=== PATIENT | female | born 1995 | race Caucasian/White ===

== ENCOUNTER 2018-01-29 13:13 | Emergency (ER) | payer SELFPAY ==
[~2018-01-29 13:13] MED LIST: Sodium Chloride 0.9% 1,000 ML BAG ONE
[2018-01-29] MEDS ORDERED: Ondansetron ODT 4 MG TAB ONE (14:11)
[2018-01-29 14:17] LABS: Bilirubin Small (Negative); Blood, Urine Trace (Negative); Glucose, Urine (Dipstick) Negative (Negative); Leukocyte Trace (Negative); Nitrite Negative (Negative); Protein, Urine (Dipstick) 30 mg/dL (Neg-Trace); Urobilinogen 0.2 mg/dL (0.2-1.0); pH, Urine 5.5 (5.0-9.0)
[2018-01-29 14:22] LABS: Pregnancy Test - Urine (BHCG) Negative (Negative)
[2018-01-29 14:23] LABS: #Basophils 0.1 thou/uL (0.0-0.2); #Eosinphils 0.3 thou/uL (0.0-0.7); #Lymphocytes 2.4 thou/uL (1.20-3.40); #Neutrophils 11.7 thou/uL (1.40-6.50); %Basophils 0.5 % (0.0-1.0); %Eosinophils 1.8 % (0.0-10.0); %Lymphocytes 15.4 % (28.0-48.0); %Monocytes 6.4 % (0.0-4.0); Mean Corpuscular HGB CONC 32.7 g/dL (32.0-36.0); Mean Corpuscular Hemoglobin 26.1 pg (25.0-35.0); Mean Corpuscular Volume 79.8 fl (77.0-87.0); Mean Platelet Volume 5.2 fL (7.4-10.4); Platelet Count 375 thou/uL (130-400); Pregu Control Background? CLEAR/WHITE (CLR/WHITE); Pregu Control Bar Appear? YES (CONTROL BAR); RBC Distribution Width 12.1 % (11.5-14.5); Specific Gravity 1.032 (1.002-1.036); White Blood Cell (WBC) Count 15.3 thou/uL (4.8-10.8)
[2018-01-29 14:29] LABS: Clarity Slightly Cloudy (Clear); Specific Gravity, Urine 1.032 (1.002-1.036)
[2018-01-29 14:30] LABS: Bacteria/HPF 3+ HPF (None Seen); RBC/HPF 0-3 HPF (0-3)
[2018-01-29 14:32] LABS: ALT (SGPT) 47 U/L (8-55); AST (SGOT) 22 U/L (5-34); Albumin 3.8 g/dL (3.5-5.0); Alkaline Phosphatase 54 U/L (40-150); Anion Gap 14 mmol/L (10-20); BUN (Urea Nitrogen) 6 mg/dL (7.0-18.7); Bilirubin, Total 0.4 mg/dL (0.2-1.2); Calc. Creatinine Clearance 0 mL/min (70-130); Calcium 9.3 mg/dL (7.8-10.44); Carbon Dioxide 22 mmol/L (22-29); Chloride 108 mmol/L (98-107); Estimated GFR-MDRD Greater than 90; Globulin 2.9 g/dL (2.4-3.5); Glucose 108 mg/dL (70-105); Lipase 7 U/L (8-78); Potassium 3.7 mmol/L (3.5-5.1); Protein, Total 6.7 g/dL (6.0-8.3); Sodium 140 mmol/L (136-145)
== END 2018-01-29 15:59 | disposition home or self-care (01) ==
LOC: MADERS 13:13
DX: K52.9 Noninfective gastroenteritis and colitis, unspecified (principal); F31.9 Bipolar disorder, unspecified; F41.9 Anxiety disorder, unspecified; F17.210 Nicotine dependence, cigarettes, uncomplicated; F44.81 Dissociative identity disorder; F43.10 Post-traumatic stress disorder, unspecified; G47.00 Insomnia, unspecified
CPT/HCPCS: 80053; 81003; 81015; 81025; 83605; 83690; 85025; 87086; 96360; 96361; J7050; Q0162

== ENCOUNTER 2018-03-17 13:12 | Emergency (ER) | payer SELFPAY | END 2018-03-17 14:15 | disposition left against medical advice (07) | LOC: MADERS 13:12 | DX: Z53.21 Procedure and treatment not carried out due to patient leaving prior to being seen by health care provider (principal) ==

== ENCOUNTER 2018-05-24 18:11 | Emergency (ER) | payer SELFPAY ==
[2018-05-24 19:00] LABS: Pregnancy Test - Urine (BHCG) Negative (Negative); Pregu Control Background? CLEAR/WHITE (CLR/WHITE); Pregu Control Bar Appear? YES (CONTROL BAR); Specific Gravity 1.023 (1.002-1.036)
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
== END 2018-05-24 19:13 | disposition home or self-care (01) ==
LOC: MADERS 18:11
DX: S06.9X1A Unspecified intracranial injury with loss of consciousness of 30 minutes or less, initial encounter (principal); F31.9 Bipolar disorder, unspecified; F60.9 Personality disorder, unspecified; F41.9 Anxiety disorder, unspecified; F17.210 Nicotine dependence, cigarettes, uncomplicated; W10.9XXA Fall (on) (from) unspecified stairs and steps, initial encounter
CPT/HCPCS: 70450; 72125; 81025

== ENCOUNTER 2018-12-17 21:36 | Emergency (ER) | payer SELFPAY ==
[2018-12-17 22:05] LABS: Bilirubin Negative (Negative); Blood, Urine Moderate (Negative); Glucose, Urine (Dipstick) Negative (Negative); Leukocyte Moderate (Negative); Nitrite Negative (Negative); Pregnancy Test - Urine (BHCG) Negative (Negative); Pregu Control Background? CLEAR/WHITE (CLR/WHITE); Pregu Control Bar Appear? YES (CONTROL BAR); Protein, Urine (Dipstick) 30 mg/dL (Neg-Trace); Urobilinogen 0.2 mg/dL (0.2-1.0); pH, Urine 5.5 (5.0-9.0)
[2018-12-17] MEDS ORDERED: Ketorolac Tromethamine 30 MG/ML VIAL ONE (22:05)
[2018-12-17] MEDS ORDERED: Sodium Chloride 0.9% 1,000 ML ONE (22:05)
[2018-12-17 22:08] LABS: Clarity Cloudy (Clear); RBC/HPF 0-3 HPF (0-3)
[2018-12-17 22:09] LABS: Bacteria/HPF 2+ HPF (None Seen)
[2018-12-17 22:25] LABS: Amphetamine Detected (NotDetected); Barbiturates Screen Not Detected (NotDetected); Benzodiazepine Screen Not Detected (NotDetected); Cocaine Metabolite Screen Not Detected (NotDetected); Medtox Control Line Valid? VALID (VALID); Methadone Not Detected (NotDetected); Methamphetamine Detected (NotDetected); Opiate Screen Not Detected (NotDetected); Oxycodone Screen Not Detected (NotDetected); Phencyclidine (PCP) Not Detected (NotDetected); THC/Cannabinoid Screen Detected (NotDetected); Tricyclic Screen Not Detected (NotDetected)
[2018-12-17] MEDS ORDERED: Sulfameth/Trimethoprim DS 800-160mg TAB ONE (22:27)
[2018-12-17 22:38] LABS: Hypochromia MODERATE=16-30 cells (100X) (0-5/hpf); Lymphocytes 21 % (21-51); MDiff Complete? YES; Mean Corpuscular HGB CONC 31.9 g/dL (32.0-36.0); Mean Corpuscular Hemoglobin 23.9 pg (27.0-31.0); Mean Corpuscular Volume 74.9 fL (78.0-98.0); Mean Platelet Volume 5.8 fL (7.4-10.4); Microcytosis MODERATE=15-30 cells (100X) (0-5/hpf); Monocytes 12 % (0-10); Neutrophil 66 % (42-75); Platelet Count 298 thou/uL (130-400); Platelet Morphology Comment Appears Adequate; RBC Distribution Width 14.8 % (11.5-14.5); RBC Morphology Abnormal; Reactive Lymphocytes 1 % (0-10); White Blood Cell (WBC) Count 9.3 thou/uL (4.8-10.8)
[2018-12-17 22:41] LABS: ALT (SGPT) 42 U/L (8-55); AST (SGOT) 19 U/L (5-34); Albumin 4.2 g/dL (3.5-5.0); Alkaline Phosphatase 71 U/L (40-150); Anion Gap 16 mmol/L (10-20); BUN (Urea Nitrogen) 10 mg/dL (7.0-18.7); Bilirubin, Total 0.6 mg/dL (0.2-1.2); Calc. Creatinine Clearance 0 mL/min (70-130); Calcium 9.4 mg/dL (7.8-10.44); Carbon Dioxide 21 mmol/L (22-29); Chloride 102 mmol/L (98-107); Estimated GFR-MDRD Greater than 90; Globulin 3.2 g/dL (2.4-3.5); Glucose 92 mg/dL (70-105); Potassium 3.2 mmol/L (3.5-5.1); Protein, Total 7.4 g/dL (6.0-8.3); Sodium 136 mmol/L (136-145)
[2018-12-17] MEDS ORDERED: Potassium Chloride 20 MEQ TAB ONE (22:52)
== END 2018-12-17 23:02 | disposition home or self-care (01) ==
LOC: MADERS 21:36
DX: N10 Acute pyelonephritis (principal); E11.649 Type 2 diabetes mellitus with hypoglycemia without coma; F43.10 Post-traumatic stress disorder, unspecified; F60.3 Borderline personality disorder; F90.9 Attention-deficit hyperactivity disorder, unspecified type; E03.9 Hypothyroidism, unspecified; F41.9 Anxiety disorder, unspecified; F17.210 Nicotine dependence, cigarettes, uncomplicated; Z71.6 Tobacco abuse counseling
CPT/HCPCS: 80053; 80306; 81003; 81015; 81025; 85025; 87077; 87086; 87186; 96361; 96374; 99406; J1885; J7050

== ENCOUNTER 2019-03-11 13:12 | Emergency (ER) | payer BC ==
[~2019-03-11 13:12] MED LIST changes: -Sodium Chloride 0.9% 1,000 ML BAG ONE; +Sodium Chloride Irrig Solution 250 ML BOT ONE
[2019-03-11] MEDS ORDERED: Lidocaine-Prilocaine 2.5% Cream 5 GM TUBE ONE (14:13)
[2019-03-11] MEDS ORDERED: Lidocaine 1% 20 ML MDV ONE (14:35)
== END 2019-03-11 15:22 | disposition home or self-care (01) ==
LOC: MADERS 13:12
DX: S51.812A Laceration without foreign body of left forearm, initial encounter (principal); I10 Essential (primary) hypertension; E03.9 Hypothyroidism, unspecified; F41.9 Anxiety disorder, unspecified; F31.9 Bipolar disorder, unspecified; F43.10 Post-traumatic stress disorder, unspecified; F90.9 Attention-deficit hyperactivity disorder, unspecified type; G47.00 Insomnia, unspecified; F17.210 Nicotine dependence, cigarettes, uncomplicated; Z79.899 Other long term (current) drug therapy; W26.8XXA Contact with other sharp object(s), not elsewhere classified, initial encounter
CPT/HCPCS: 12002; J2001

== ENCOUNTER 2019-03-16 22:25 | Emergency (ER) | payer BC ==
--- NOTE | 2019-03-16 23:04 | RAD ---
EXAM: XR Hand Rt 3 View STANDARD PROVIDED CLINICAL HISTORY: Pain FINDINGS: There is no evidence for fracture or other acute osseous abnormality. Alignment appears anatomic. Ashly nt spaces appear preserved. IMPRESSION: No evidence for an acute osseous abnormality. If there is persistent clinical concern, conservative m anagement and follow-up imaging advised.
--- NOTE | 2019-03-16 23:06 | RAD ---
EXAM: XR Wrist 3 Rt View STANDARD PROVIDED CLINICAL HISTORY: Pain FINDINGS: There is no evidence for fracture or other acute osseous abnormality. Alignment appears anatomic. Ashly nt spaces appear preserved. IMPRESSION: No evidence for an acute osseous abnormality. If there is persistent clinical concern, conservative m anagement and follow-up imaging advised.
== END 2019-03-16 23:40 | disposition left against medical advice (07) ==
LOC: MADERS 22:25
DX: S60.211A Contusion of right wrist, initial encounter (principal); I10 Essential (primary) hypertension; E11.649 Type 2 diabetes mellitus with hypoglycemia without coma; E03.9 Hypothyroidism, unspecified; F41.9 Anxiety disorder, unspecified; F31.9 Bipolar disorder, unspecified; F43.10 Post-traumatic stress disorder, unspecified; F17.210 Nicotine dependence, cigarettes, uncomplicated; F90.9 Attention-deficit hyperactivity disorder, unspecified type; G47.00 Insomnia, unspecified; X58.XXXA Exposure to other specified factors, initial encounter

== ENCOUNTER 2019-04-07 08:35 | Emergency (ER) | payer BC ==
[2019-04-07 09:09] LABS: #Basophils 0.1 thou/uL (0.0-0.2); #Eosinphils 0.1 thou/uL (0.0-0.7); #Lymphocytes 1.4 thou/uL (1.20-3.40); #Monocytes 0.6 thou/uL (0.11-0.59); #Neutrophils 6.8 thou/uL (1.40-6.50); %Basophils 0.6 % (0.0-1.0); %Eosinophils 0.9 % (0.0-10.0); %Lymphocytes 16.1 % (21.0-51.0); %Monocytes 6.2 % (0.0-10.0); %Neutrophils 76.3 % (42.0-75.0); Hemoglobin 11.3 g/dL (12.0-16.0); Mean Corpuscular HGB CONC 32.8 g/dL (32.0-36.0); Mean Corpuscular Hemoglobin 26.8 pg (27.0-31.0); Mean Corpuscular Volume 81.5 fL (78.0-98.0); Mean Platelet Volume 5.9 fL (7.4-10.4); Platelet Count 259 thou/uL (130-400); RBC Distribution Width 14.2 % (11.5-14.5); Red Blood Cell (RBC) Count 4.22 mill/uL (4.20-5.40); White Blood Cell (WBC) Count 8.9 thou/uL (4.8-10.8)
[2019-04-07 09:17] LABS: BHCG - Serum Negative (NEGATIVE); Pregs Control Background? CLEAR/WHITE (CLR/WHITE); Pregs Control Bar Appear? YES (CONTROL BAR)
[2019-04-07] MEDS ORDERED: Triple Antibiotic Oint 1 GM Packet ONE (09:19)
[2019-04-07 09:24] LABS: ALT (SGPT) 54 U/L (8-55); AST (SGOT) 21 U/L (5-34); Albumin 3.9 g/dL (3.5-5.0); Alkaline Phosphatase 66 U/L (40-150); Anion Gap 11 mmol/L (10-20); BUN (Urea Nitrogen) 7 mg/dL (7.0-18.7); Bilirubin, Total 0.3 mg/dL (0.2-1.2); Calc. Creatinine Clearance 0 mL/min (70-130); Calcium 8.9 mg/dL (7.8-10.44); Carbon Dioxide 24 mmol/L (22-29); Chloride 110 mmol/L (98-107); Estimated GFR-MDRD Greater than 90; Globulin 2.5 g/dL (2.4-3.5); Glucose 97 mg/dL (70-105); Lipase 12 U/L (8-78); Protein, Total 6.4 g/dL (6.0-8.3); Sodium 141 mmol/L (136-145)
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
[2019-04-07 09:50] LABS: Amphetamine Not Detected (NotDetected); Barbiturates Screen Not Detected (NotDetected); Benzodiazepine Screen Not Detected (NotDetected); Cocaine Metabolite Screen Not Detected (NotDetected); Medtox Control Line Valid? VALID (VALID); Methadone Not Detected (NotDetected); Methamphetamine Not Detected (NotDetected); Opiate Screen Not Detected (NotDetected); Oxycodone Screen Not Detected (NotDetected); Phencyclidine (PCP) Not Detected (NotDetected); THC/Cannabinoid Screen Detected (NotDetected); Tricyclic Screen Not Detected (NotDetected)
[2019-04-07 09:51] LABS: Bilirubin Negative (Negative); Blood, Urine Negative (Negative); Clarity Clear (Clear); Glucose, Urine (Dipstick) Negative (Negative); Leukocyte Trace (Negative); Nitrite Negative (Negative); Protein, Urine (Dipstick) 100 mg/dL (Neg-Trace); RBC/HPF 0-3 HPF (0-3); Squamous Epithelial 0-3 HPF (0-3); Urobilinogen 0.2 mg/dL (Less than 2)
[2019-04-07 09:52] LABS: Bacteria/HPF Rare-Few HPF (None Seen)
--- NOTE | 2019-04-07 10:01 | RAD ---
CHEST 2 VIEWS: Date: 04/07/19 HISTORY: Upper abdominal pain. FINDINGS: Heart size is within normal limits. The lungs are clear. No pneumothorax or pleural effusion. IMPRESSION: No acute intrathoracic disease. No free intraperitoneal air. POS: [facility]
[2019-04-07] MEDS ORDERED: Iopamidol 370 76% 100 ML VIAL ONE (10:04)
== END 2019-04-07 12:00 | disposition home or self-care (01) ==
LOC: MADERS 08:35
DX: S80.812A Abrasion, left lower leg, initial encounter (principal); S80.811A Abrasion, right lower leg, initial encounter; R10.11 Right upper quadrant pain; N39.0 Urinary tract infection, site not specified; I10 Essential (primary) hypertension; E11.649 Type 2 diabetes mellitus with hypoglycemia without coma; E03.9 Hypothyroidism, unspecified; F41.9 Anxiety disorder, unspecified; F31.9 Bipolar disorder, unspecified; F43.10 Post-traumatic stress disorder, unspecified; F90.9 Attention-deficit hyperactivity disorder, unspecified type; G47.00 Insomnia, unspecified; F17.210 Nicotine dependence, cigarettes, uncomplicated; Y04.0XXA Assault by unarmed brawl or fight, initial encounter
CPT/HCPCS: 71046; 74177; 80053; 80306; 81003; 81015; 83690; 84703; 85025; 87086; 93005; 94760; Q9967

== ENCOUNTER 2019-04-30 02:46 | Emergency (ER) | payer BC ==
[2019-04-30] MEDS ORDERED: Ibuprofen 800 MG TAB ONE (03:27)
[2019-04-30 03:28] LABS: Bilirubin Negative (Negative); Blood, Urine Negative (Negative); Clarity Clear (Clear); Glucose, Urine (Dipstick) Negative (Negative); Leukocyte Trace (Negative); Nitrite Negative (Negative); Protein, Urine (Dipstick) Negative (Neg-Trace); Urobilinogen 0.2 mg/dL (Less than 2)
[2019-04-30 03:29] LABS: Bacteria/HPF Rare-Few HPF (None Seen); RBC/HPF 0-3 HPF (0-3); Squamous Epithelial 0-3 HPF (0-3); WBC/HPF 0-3 HPF (0-3)
[2019-04-30 03:29] LABS: Pregnancy Test - Urine (BHCG) Negative (Negative)
[2019-04-30 03:30] LABS: Pregu Control Background? CLEAR/WHITE (CLR/WHITE); Pregu Control Bar Appear? YES (CONTROL BAR); Specific Gravity 1.025 (1.002-1.036)
== END 2019-04-30 03:55 | disposition home or self-care (01) ==
LOC: MADERS 02:46
DX: R30.0 Dysuria (principal); R10.9 Unspecified abdominal pain; F15.10 Other stimulant abuse, uncomplicated; E03.9 Hypothyroidism, unspecified; I10 Essential (primary) hypertension; E11.9 Type 2 diabetes mellitus without complications; F41.9 Anxiety disorder, unspecified; F32.9 Major depressive disorder, single episode, unspecified; F43.10 Post-traumatic stress disorder, unspecified; F90.9 Attention-deficit hyperactivity disorder, unspecified type; G47.00 Insomnia, unspecified; F17.210 Nicotine dependence, cigarettes, uncomplicated
CPT/HCPCS: 81003; 81015; 81025; 99284

== ENCOUNTER 2019-05-17 15:42 | Emergency (ER) | payer BC, OTHER ==
[2019-05-17] MEDS ORDERED: Ibuprofen 800 MG TAB ONE (16:18)
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
== END 2019-05-17 16:45 | disposition home or self-care (01) ==
LOC: MADERS 15:42
DX: S90.31XA Contusion of right foot, initial encounter (principal); I10 Essential (primary) hypertension; E11.9 Type 2 diabetes mellitus without complications; E03.9 Hypothyroidism, unspecified; F41.9 Anxiety disorder, unspecified; F31.9 Bipolar disorder, unspecified; F43.10 Post-traumatic stress disorder, unspecified; F17.210 Nicotine dependence, cigarettes, uncomplicated; F90.9 Attention-deficit hyperactivity disorder, unspecified type; Y04.0XXA Assault by unarmed brawl or fight, initial encounter

== ENCOUNTER 2019-12-31 11:46 | Emergency (ER) | payer OTHER, SELFPAY ==
[2019-12-31] MEDS ORDERED: HYDROcodone/Acetaminophen 5/325 mg Tablet ONE (12:48)
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
== END 2019-12-31 13:50 | disposition home or self-care (01) ==
LOC: MADERS 11:46
DX: S00.03XA Contusion of scalp, initial encounter (principal); S40.011A Contusion of right shoulder, initial encounter; F31.9 Bipolar disorder, unspecified; E03.9 Hypothyroidism, unspecified; E11.649 Type 2 diabetes mellitus with hypoglycemia without coma; F41.9 Anxiety disorder, unspecified; F17.210 Nicotine dependence, cigarettes, uncomplicated; Y04.8XXA Assault by other bodily force, initial encounter
CPT/HCPCS: 71045

== ENCOUNTER 2020-01-19 10:17 | Emergency (ER) | payer OTHER ==
[~2020-01-19 10:17] MED LIST changes: +Sodium Chloride 0.9% 1,000 ML BAG ONE; -Sodium Chloride Irrig Solution 250 ML BOT ONE
[2020-01-19 11:49] LABS: Bilirubin Negative (Negative); Blood, Urine Negative (Negative); Clarity Clear (Clear); Glucose, Urine (Dipstick) Negative (Negative); Leukocyte Negative (Negative); Nitrite Negative (Negative); Protein, Urine (Dipstick) Negative (Neg-Trace); Urobilinogen 0.2 mg/dL (Less than 2)
[2020-01-19 11:51] LABS: Pregnancy Test - Urine (BHCG) Negative (Negative); Pregu Control Background? CLEAR/WHITE (CLR/WHITE); Pregu Control Bar Appear? YES (CONTROL BAR)
[2020-01-19] MEDS ORDERED: Loperamide HCl 2 MG CAP ONE (11:58)
== END 2020-01-19 12:49 | disposition home or self-care (01) ==
LOC: MADERS 10:17
DX: A08.4 Viral intestinal infection, unspecified (principal); F31.9 Bipolar disorder, unspecified; E03.9 Hypothyroidism, unspecified; I10 Essential (primary) hypertension; F41.9 Anxiety disorder, unspecified; F43.10 Post-traumatic stress disorder, unspecified; G47.00 Insomnia, unspecified; F90.9 Attention-deficit hyperactivity disorder, unspecified type; F17.210 Nicotine dependence, cigarettes, uncomplicated
CPT/HCPCS: 81003; 81025; 96360; J7050

== ENCOUNTER 2020-02-18 17:43 | Emergency (ER) | payer OTHER ==
[2020-02-18] MEDS ORDERED: Prochlorperazine 10 MG/2 ML VIAL ONE (18:04)
[2020-02-18] MEDS ORDERED: Famotidine In NaCl 20 mg/50 ml Premix Bag ONE (18:04)
[2020-02-18 18:06] LABS: #Eosinphils 0.1 thou/uL (0.0-0.7); #Lymphocytes 1.5 thou/uL (1.20-3.40); #Monocytes 0.6 thou/uL (0.11-0.59); #Neutrophils 11.1 thou/uL (1.40-6.50); %Basophils 0.4 % (0.0-1.0); %Eosinophils 0.5 % (0.0-10.0); %Lymphocytes 11.3 % (21.0-51.0); %Monocytes 4.4 % (0.0-10.0); %Neutrophils 83.5 % (42.0-75.0); Hemoglobin 14.9 g/dL (12.0-16.0); Mean Corpuscular HGB CONC 32.8 g/dL (32.0-36.0); Mean Corpuscular Hemoglobin 28.1 pg (27.0-31.0); Mean Corpuscular Volume 85.6 fL (78.0-98.0); Mean Platelet Volume 6.1 fL (7.4-10.4); Platelet Count 438 thou/uL (130-400); RBC Distribution Width 12.6 % (11.5-14.5); Red Blood Cell (RBC) Count 5.32 mill/uL (4.20-5.40); White Blood Cell (WBC) Count 13.3 thou/uL (4.8-10.8)
[2020-02-18 18:12] LABS: BHCG - Serum Negative (NEGATIVE); Pregs Control Background? CLEAR/WHITE (CLR/WHITE); Pregs Control Bar Appear? YES (CONTROL BAR)
[2020-02-18 18:22] LABS: ALT (SGPT) 40 U/L (8-55); AST (SGOT) 18 U/L (5-34); Albumin 4.7 g/dL (3.5-5.0); Alkaline Phosphatase 75 U/L (40-110); Anion Gap 20 mmol/L (10-20); BUN (Urea Nitrogen) 7 mg/dL (7.0-18.7); Bilirubin, Total 0.6 mg/dL (0.2-1.2); Calc. Creatinine Clearance 0 mL/min (70-130); Calcium 10.3 mg/dL (7.8-10.44); Carbon Dioxide 17 mmol/L (22-29); Chloride 110 mmol/L (98-107); Estimated GFR-MDRD Greater than 90; Globulin 3.5 g/dL (2.4-3.5); Glucose 123 mg/dL (70-105); Lipase 14 U/L (8-78); Potassium 3.5 mmol/L (3.5-5.1); Protein, Total 8.2 g/dL (6.0-8.3); Sodium 143 mmol/L (136-145)
[2020-02-18] MEDS ORDERED: Ondansetron PF 4 MG/2 ML Vial ONE (20:14)
== END 2020-02-18 20:20 | disposition home or self-care (01) ==
LOC: MADERS 17:43
DX: K52.9 Noninfective gastroenteritis and colitis, unspecified (principal); F31.9 Bipolar disorder, unspecified; E03.9 Hypothyroidism, unspecified; I10 Essential (primary) hypertension; E11.649 Type 2 diabetes mellitus with hypoglycemia without coma; F41.9 Anxiety disorder, unspecified; F43.10 Post-traumatic stress disorder, unspecified; F90.9 Attention-deficit hyperactivity disorder, unspecified type; G47.00 Insomnia, unspecified; F17.210 Nicotine dependence, cigarettes, uncomplicated
CPT/HCPCS: 80053; 83605; 83690; 84703; 85025; 96361; 96365; 96375; J0780; J2405; J7050

== ENCOUNTER 2020-02-19 15:58 | Emergency (ER) | payer OTHER ==
[2020-02-19] MEDS ORDERED: Ondansetron PF 4 MG/2 ML Vial ONE (16:33)
[2020-02-19] MEDS ORDERED: Sodium Chloride 0.9% 1,000 ML ONE (16:35)
[2020-02-19 16:52] LABS: Bilirubin Small (Negative); Blood, Urine Trace (Negative); Glucose, Urine (Dipstick) Negative (Negative); Leukocyte Negative (Negative); Nitrite Negative (Negative); Protein, Urine (Dipstick) 100 mg/dL (Neg-Trace)
[2020-02-19 16:53] LABS: #Basophils 0.1 thou/uL (0.0-0.2); #Lymphocytes 2.1 thou/uL (1.20-3.40); #Monocytes 0.9 thou/uL (0.11-0.59); #Neutrophils 10.3 thou/uL (1.40-6.50); %Basophils 0.4 % (0.0-1.0); %Eosinophils 0.1 % (0.0-10.0); %Lymphocytes 15.8 % (21.0-51.0); %Monocytes 6.4 % (0.0-10.0); %Neutrophils 77.3 % (42.0-75.0); Hemoglobin 13.7 g/dL (12.0-16.0); Mean Corpuscular HGB CONC 32.9 g/dL (32.0-36.0); Mean Corpuscular Hemoglobin 28.2 pg (27.0-31.0); Mean Corpuscular Volume 85.9 fL (78.0-98.0); Mean Platelet Volume 6.4 fL (7.4-10.4); Platelet Count 365 thou/uL (130-400); RBC Distribution Width 12.7 % (11.5-14.5); Red Blood Cell (RBC) Count 4.85 mill/uL (4.20-5.40); White Blood Cell (WBC) Count 13.3 thou/uL (4.8-10.8)
[2020-02-19 16:55] LABS: Clarity Hazy (Clear); Pregnancy Test - Urine (BHCG) Negative (Negative); Pregu Control Background? CLEAR/WHITE (CLR/WHITE); Pregu Control Bar Appear? YES (CONTROL BAR); Specific Gravity 1.034 (1.002-1.036)
[2020-02-19 16:59] LABS: ALT (SGPT) 39 U/L (8-55); AST (SGOT) 25 U/L (5-34); Albumin 4.4 g/dL (3.5-5.0); Alkaline Phosphatase 65 U/L (40-110); Anion Gap 17 mmol/L (10-20); BUN (Urea Nitrogen) 6 mg/dL (7.0-18.7); Bilirubin, Total 0.6 mg/dL (0.2-1.2); Calc. Creatinine Clearance 0 mL/min (70-130); Calcium 9.7 mg/dL (7.8-10.44); Carbon Dioxide 20 mmol/L (22-29); Chloride 107 mmol/L (98-107); Estimated GFR-MDRD Greater than 90; Globulin 2.9 g/dL (2.4-3.5); Glucose 103 mg/dL (70-105); Lipase 5 U/L (8-78); Potassium 3.3 mmol/L (3.5-5.1); Protein, Total 7.3 g/dL (6.0-8.3); Sodium 141 mmol/L (136-145)
[2020-02-19 16:59] LABS: Bacteria/HPF Rare-Few HPF (None Seen); Mucous/LPF 3+ LPF (<2+); RBC/HPF 0-3 HPF (0-3); WBC/HPF 0-3 HPF (0-3)
[2020-02-19] MEDS ORDERED: Potassium Chloride 20 MEQ TAB ONE (17:29)
== END 2020-02-19 18:06 | disposition home or self-care (01) ==
LOC: MADERS 15:58
DX: E87.6 Hypokalemia (principal); R11.2 Nausea with vomiting, unspecified; R19.7 Diarrhea, unspecified; E03.9 Hypothyroidism, unspecified; F31.9 Bipolar disorder, unspecified; I10 Essential (primary) hypertension; F41.9 Anxiety disorder, unspecified; F17.210 Nicotine dependence, cigarettes, uncomplicated
CPT/HCPCS: 80053; 81003; 81015; 81025; 83690; 85025; 96361; 96374; J2405; J7050

== ENCOUNTER 2020-02-21 03:40 | Emergency (ER) | payer OTHER ==
[2020-02-21 04:23] LABS: Bilirubin Moderate (Negative); Blood, Urine Negative (Negative); Clarity Clear (Clear); Glucose, Urine (Dipstick) Negative (Negative); Leukocyte Negative (Negative); Nitrite Negative (Negative); Protein, Urine (Dipstick) 30 mg/dL (Neg-Trace)
[2020-02-21 04:27] LABS: RBC/HPF 0-3 HPF (0-3)
[2020-02-21 04:28] LABS: Mucous/LPF 4+ LPF (<2+); Squamous Epithelial 21-50 HPF (0-3)
[2020-02-21 04:29] LABS: Bacteria/HPF 1+ HPF (None Seen)
[2020-02-21] MEDS ORDERED: Sodium Chloride 0.9% 1,000 ML ONE ×2 (04:37→05:22)
[2020-02-21] MEDS ORDERED: Prochlorperazine 10 MG/2 ML VIAL ONE (04:37)
[2020-02-21 04:42] LABS: Pregnancy Test - Urine (BHCG) Negative (Negative); Pregu Control Background? CLEAR/WHITE (CLR/WHITE); Pregu Control Bar Appear? YES (CONTROL BAR); Specific Gravity 1.031 (1.002-1.036)
[2020-02-21 04:49] LABS: %Lymphocytes 14.1 % (21.0-51.0); %Neutrophils 78.9 % (42.0-75.0); Hemoglobin 14.3 g/dL (12.0-16.0); Mean Corpuscular HGB CONC 31.8 g/dL (32.0-36.0); Mean Corpuscular Hemoglobin 27.4 pg (27.0-31.0); Mean Corpuscular Volume 86.1 fL (78.0-98.0); Mean Platelet Volume 6.2 fL (7.4-10.4); Platelet Count 378 thou/uL (130-400); RBC Distribution Width 12.5 % (11.5-14.5); Red Blood Cell (RBC) Count 5.21 mill/uL (4.20-5.40); White Blood Cell (WBC) Count 12.7 thou/uL (4.8-10.8)
[2020-02-21 04:50] LABS: #Basophils 0.1 thou/uL (0.0-0.2); #Lymphocytes 1.8 thou/uL (1.20-3.40); #Monocytes 0.8 thou/uL (0.11-0.59); %Basophils 0.5 % (0.0-1.0); %Eosinophils 0.1 % (0.0-10.0); %Monocytes 6.4 % (0.0-10.0)
[2020-02-21 04:57] LABS: ALT (SGPT) 100 U/L (8-55); AST (SGOT) 58 U/L (5-34); Albumin 4.6 g/dL (3.5-5.0); Alkaline Phosphatase 69 U/L (40-110); Anion Gap 15 mmol/L (10-20); BUN (Urea Nitrogen) 6 mg/dL (7.0-18.7); Bilirubin, Total 0.8 mg/dL (0.2-1.2); Calc. Creatinine Clearance 0 mL/min (70-130); Calcium 9.8 mg/dL (7.8-10.44); Carbon Dioxide 26 mmol/L (22-29); Chloride 102 mmol/L (98-107); Estimated GFR-MDRD Greater than 90; Glucose 114 mg/dL (70-105); Lipase 4 U/L (8-78); Potassium 3.1 mmol/L (3.5-5.1); Protein, Total 7.6 g/dL (6.0-8.3); Sodium 140 mmol/L (136-145)
[2020-02-21] MEDS ORDERED: Iopamidol 370 76% 100 ML VIAL IV ONE (05:00)
[2020-02-21] MEDS ORDERED: Pantoprazole 40 MG VIAL ONE (05:19)
[2020-02-21 05:34] LABS: Amphetamine Not Detected (NotDetected); Barbiturates Screen Not Detected (NotDetected); Benzodiazepine Screen Not Detected (NotDetected); Cocaine Metabolite Screen Detected (NotDetected); Medtox Control Line Valid? VALID (VALID); Methadone Not Detected (NotDetected); Methamphetamine Not Detected (NotDetected); Opiate Screen Not Detected (NotDetected); Oxycodone Screen Not Detected (NotDetected); Phencyclidine (PCP) Not Detected (NotDetected); THC/Cannabinoid Screen Detected (NotDetected); Tricyclic Screen Not Detected (NotDetected)
[2020-02-21] MEDS ORDERED: NS 0.9% w/ 40 MEQ KCL 1,000 ML IV ONE (05:41)
[2020-02-21 06:13] LABS: Acetaminophen Less than 6.0 mcg/mL (10.0-30.0); Alcohol Less than 10 mg/dL (Less than 10); Salicylate Less than 8.0 mg/dL (15.0-30.0)
[2020-02-21] MEDS ORDERED: Ondansetron PF 4 MG/2 ML Vial ONE (07:37)
--- NOTE | 2020-02-21 09:20 | CT ---
PRELIMINARY REPORT/[facility]/AFTER HOURS PROCEDURE CT ABDOMEN AND PELVIS WITH INTRAVENOUS CONTRAST: CLINICAL HISTORY: Intractable N/V. TECHNIQUE: Axial computed tomography images of the abdomen and pelvis with intravenous contrast. CONTRAST: With Isovue-370 90 mL. COMPARISON: None provided. FINDINGS: LUNG BASES: No basilar airspace consolidation or pleural effusion. LIVER: Unremarkable. GALLBLADDER AND BILE DUCTS: Unremarkable. No calcified stone. No ductal dilation. PANCREAS: Unremarkable. SPLEEN: Unremarkable. ADRENAL GLANDS: Unremarkable. KIDNEYS, URETERS, AND BLADDER: Unremarkable. No hydronephrosis or nephrolithiasis. No ureteral or artem dder calculi. STOMACH AND BOWEL: No obstruction. No wall thickening. No CT evidence of colitis or acute diverticuli tis. APPENDIX: No CT evidence for appendicitis. PERITONEUM: No free fluid. No free air. LYMPH NODES: No lymphadenopathy. REPRODUCTIVE: Unremarkable as visualized. VASCULATURE: No aortic aneurysm. BONES: No fracture or suspicious osseous abnormality. ABDOMINAL WALL AND SOFT TISSUES: Unremarkable. IMPRESSION: No acute intra-abdominal or pelvic abnormality. ELECTRONICALLY SIGNED BY: Samanta Perez MD Feb 21, 2020 5:18:54 AM CDT This report is intended for review by the ordering physician only, in accordance of law. If you recei ve this report in error, please call [facility] at [phone]. FINAL REPORT EMERGENT AFTER HOURS CT ABDOMEN AND PELVIS WITH CONTRAST: COMPARISON: 04/07/2019 FINDINGS/IMPRESSION: I agree with the findings and impression given in the preliminary report per the [facility] phy sician. 1. No evidence of acute intraabdominal/pelvic abnormality. 2. There is a small area of hypodensity adjacent to the falciform ligament, which may represent focal fatty infiltration. CODE QA POS: [facility]
== END 2020-02-21 08:27 | disposition short-term general hospital (02) ==
LOC: MADERS 03:40
DX: R11.2 Nausea with vomiting, unspecified (principal); E87.6 Hypokalemia; F14.10 Cocaine abuse, uncomplicated; F31.9 Bipolar disorder, unspecified; I10 Essential (primary) hypertension; E03.9 Hypothyroidism, unspecified; E11.9 Type 2 diabetes mellitus without complications; F41.9 Anxiety disorder, unspecified; F90.9 Attention-deficit hyperactivity disorder, unspecified type; F43.10 Post-traumatic stress disorder, unspecified; F17.210 Nicotine dependence, cigarettes, uncomplicated
CPT/HCPCS: 74177; 80053; 80306; 80307; 81003; 81015; 81025; 83605; 83690; 83735; 84443; 85025; 96361; 96374; 96375; C9113; J0780; J2405; J3480; J7050; Q9967

== ENCOUNTER 2020-09-29 01:42 | Emergency (ER) | payer SELFPAY ==
[2020-09-29] MEDS ORDERED: Sodium Chloride 0.9% 1,000 ML ONE (02:08)
[2020-09-29] MEDS ORDERED: Ondansetron PF 4 MG/2 ML Vial ONE (02:08)
[2020-09-29] MEDS ORDERED: Morphine 4 MG/ML VIAL ONE (02:08)
[2020-09-29 02:24] LABS: #Basophils 0.1 thou/uL (0.0-0.2); #Eosinphils 0.1 thou/uL (0.0-0.7); #Lymphocytes 2.4 thou/uL (1.20-3.40); #Monocytes 0.8 thou/uL (0.11-0.59); #Neutrophils 7.7 thou/uL (1.40-6.50); %Basophils 0.9 % (0.0-1.0); %Eosinophils 0.7 % (0.0-10.0); %Lymphocytes 21.4 % (21.0-51.0); %Monocytes 7.5 % (0.0-10.0); %Neutrophils 69.5 % (42.0-75.0); Hemoglobin 12.6 g/dL (12.0-16.0); Mean Corpuscular Hemoglobin 27.9 pg (27.0-31.0); Mean Corpuscular Volume 84.5 fL (78.0-98.0); Mean Platelet Volume 5.6 fL (7.4-10.4); Platelet Count 301 thou/uL (130-400); Red Blood Cell (RBC) Count 4.51 mill/uL (4.20-5.40); White Blood Cell (WBC) Count 11.1 thou/uL (4.8-10.8)
[2020-09-29 02:36] LABS: BHCG - Serum Negative (NEGATIVE); Pregs Control Background? CLEAR/WHITE (CLR/WHITE); Pregs Control Bar Appear? YES (CONTROL BAR)
[2020-09-29 02:43] LABS: ALT (SGPT) 45 U/L (8-55); AST (SGOT) 29 U/L (5-34); Albumin 4.2 g/dL (3.5-5.0); Alkaline Phosphatase 77 U/L (40-110); Anion Gap 14 mmol/L (10-20); BUN (Urea Nitrogen) 12 mg/dL (7.0-18.7); Bilirubin, Total 0.4 mg/dL (0.2-1.2); Calc. Creatinine Clearance 0 mL/min (70-130); Calcium 9.2 mg/dL (7.8-10.44); Carbon Dioxide 25 mmol/L (22-29); Chloride 106 mmol/L (98-107); Globulin 3.3 g/dL (2.4-3.5); Glucose 81 mg/dL (70-105); Lipase 13 U/L (8-78); Potassium 3.8 mmol/L (3.5-5.1); Protein, Total 7.5 g/dL (6.0-8.3); Sodium 141 mmol/L (136-145)
== END 2020-09-29 02:39 | disposition short-term general hospital (02) ==
LOC: MADERS 01:42
DX: K80.80 Other cholelithiasis without obstruction (principal); E03.9 Hypothyroidism, unspecified; I10 Essential (primary) hypertension; F17.210 Nicotine dependence, cigarettes, uncomplicated
CPT/HCPCS: 80053; 83605; 83690; 84703; 85025; 96374; 96375; J2270; J2405; J7050

== ENCOUNTER 2020-10-01 07:30 | Emergency (ER) | payer OTHER, SELFPAY ==
[2020-10-01] MEDS ORDERED: Ketorolac Tromethamine 30 MG/ML VIAL ONE (08:33)
[2020-10-01] MEDS ORDERED: Ondansetron PF 4 MG/2 ML Vial ONE (08:33)
[2020-10-01] MEDS ORDERED: Sodium Chloride 0.9% 1,000 ML ONE (08:33)
[2020-10-01 08:39] LABS: #Basophils 0.1 thou/uL (0.0-0.2); #Eosinphils 0.1 thou/uL (0.0-0.7); #Lymphocytes 1.6 thou/uL (1.20-3.40); #Monocytes 0.4 thou/uL (0.11-0.59); #Neutrophils 5.7 thou/uL (1.40-6.50); %Basophils 0.7 % (0.0-1.0); %Eosinophils 0.7 % (0.0-10.0); %Lymphocytes 20.7 % (21.0-51.0); %Monocytes 5.1 % (0.0-10.0); %Neutrophils 72.8 % (42.0-75.0); Hemoglobin 12.4 g/dL (12.0-16.0); Mean Corpuscular HGB CONC 34.1 g/dL (32.0-36.0); Mean Corpuscular Hemoglobin 28.6 pg (27.0-31.0); Mean Corpuscular Volume 83.8 fL (78.0-98.0); Mean Platelet Volume 5.2 fL (7.4-10.4); Platelet Count 282 thou/uL (130-400); RBC Distribution Width 12.2 % (11.5-14.5); Red Blood Cell (RBC) Count 4.35 mill/uL (4.20-5.40); White Blood Cell (WBC) Count 7.9 thou/uL (4.8-10.8)
[2020-10-01 08:51] LABS: BHCG - Serum Negative (NEGATIVE); Pregs Control Background? CLEAR/WHITE (CLR/WHITE); Pregs Control Bar Appear? YES (CONTROL BAR)
[2020-10-01 08:57] LABS: ALT (SGPT) 49 U/L (8-55); AST (SGOT) 24 U/L (5-34); Alkaline Phosphatase 75 U/L (40-110); Anion Gap 15 mmol/L (10-20); BUN (Urea Nitrogen) 7 mg/dL (7.0-18.7); Bilirubin, Total 0.6 mg/dL (0.2-1.2); Calc. Creatinine Clearance 0 mL/min (70-130); Calcium 9.5 mg/dL (7.8-10.44); Carbon Dioxide 26 mmol/L (22-29); Chloride 103 mmol/L (98-107); Globulin 3.4 g/dL (2.4-3.5); Glucose 88 mg/dL (70-105); Lipase 5 U/L (8-78); Protein, Total 7.4 g/dL (6.0-8.3); Sodium 140 mmol/L (136-145)
== END 2020-10-01 09:35 | disposition home or self-care (01) ==
LOC: MADERS 07:30
DX: K80.20 Calculus of gallbladder without cholecystitis without obstruction (principal); E03.9 Hypothyroidism, unspecified; I10 Essential (primary) hypertension; R73.03 Prediabetes; F17.210 Nicotine dependence, cigarettes, uncomplicated
CPT/HCPCS: 80053; 83690; 84703; 85025; J0500; J1885; J2405; J7050

== ENCOUNTER 2020-10-27 10:22 | Emergency (ER) | payer OTHER ==
[2020-10-27] MEDS ORDERED: Ondansetron PF 4 MG/2 ML Vial ONE (11:10)
[2020-10-27 11:36] LABS: #Basophils 0.1 thou/uL (0.0-0.2); #Eosinphils 0.1 thou/uL (0.0-0.7); #Lymphocytes 2.1 thou/uL (1.20-3.40); #Monocytes 0.4 thou/uL (0.11-0.59); #Neutrophils 5.6 thou/uL (1.40-6.50); %Eosinophils 0.9 % (0.0-10.0); %Lymphocytes 25.1 % (21.0-51.0); %Monocytes 5.2 % (0.0-10.0); %Neutrophils 67.7 % (42.0-75.0); Hemoglobin 14.8 g/dL (12.0-16.0); Mean Corpuscular HGB CONC 32.5 g/dL (32.0-36.0); Mean Corpuscular Hemoglobin 27.5 pg (27.0-31.0); Mean Corpuscular Volume 84.6 fL (78.0-98.0); Mean Platelet Volume 5.9 fL (7.4-10.4); Platelet Count 344 thou/uL (130-400); RBC Distribution Width 12.9 % (11.5-14.5); White Blood Cell (WBC) Count 8.3 thou/uL (4.8-10.8)
[2020-10-27 11:56] LABS: ALT (SGPT) 25 U/L (8-55); AST (SGOT) 23 U/L (5-34); Albumin 4.6 g/dL (3.5-5.0); Alkaline Phosphatase 82 U/L (40-110); Anion Gap 19 mmol/L (10-20); BUN (Urea Nitrogen) 13 mg/dL (7.0-18.7); Bilirubin, Total 0.4 mg/dL (0.2-1.2); Calc. Creatinine Clearance 0 mL/min (70-130); Calcium 10.1 mg/dL (7.8-10.44); Carbon Dioxide 21 mmol/L (22-29); Chloride 103 mmol/L (98-107); Globulin 4.8 g/dL (2.4-3.5); Glucose 74 mg/dL (70-105); Lipase 12 U/L (8-78); Potassium 4.2 mmol/L (3.5-5.1); Protein, Total 9.4 g/dL (6.0-8.3); Sodium 139 mmol/L (136-145)
[2020-10-27 12:17] LABS: Bilirubin Negative (Negative); Blood, Urine Negative (Negative); Clarity Clear (Clear); Glucose, Urine (Dipstick) Negative (Negative); Ketone, Urine Negative (Negative); Leukocyte Trace (Negative); Nitrite Negative (Negative); Pregnancy Test - Urine (BHCG) Negative (Negative); Protein, Urine (Dipstick) 30 mg/dL (Neg-Trace); Specific Gravity 1.026 (1.002-1.036)
[2020-10-27 12:18] LABS: Pregu Control Background? CLEAR/WHITE (CLR/WHITE); Pregu Control Bar Appear? YES (CONTROL BAR)
[2020-10-27 12:19] LABS: Specific Gravity, Urine 1.026 (1.002-1.036)
[2020-10-27 12:23] LABS: RBC/HPF 0-3 HPF (0-3)
[2020-10-27 12:24] LABS: Bacteria/HPF Rare-Few HPF (None Seen)
[2020-10-27 12:25] LABS: Amphetamine Detected (NotDetected); Barbiturates Screen Not Detected (NotDetected); Benzodiazepine Screen Not Detected (NotDetected); Cocaine Metabolite Screen Not Detected (NotDetected); Medtox Control Line Valid? VALID (VALID); Methadone Not Detected (NotDetected); Methamphetamine Detected (NotDetected); Opiate Screen Not Detected (NotDetected); Oxycodone Screen Not Detected (NotDetected); Phencyclidine (PCP) Not Detected (NotDetected); THC/Cannabinoid Screen Detected (NotDetected); Tricyclic Screen Not Detected (NotDetected)
--- NOTE | 2020-10-27 12:33 | RAD ---
EXAM: Chest 2 views: HISTORY: Cough and congestion COMPARISON: 04/07/2019 FINDINGS: There is a normal-sized cardiomediastinal silhouette. There is no evidence of consolidation, mass, or pleural effusion. No acute osseous abnormality. IMPRESSION: No evidence of acute cardiopulmonary disease
--- NOTE | 2020-10-27 13:00 | CT ---
CT Abdomen Pelvis W Con: 10/27/2020 12:52 PM CLINICAL INFORMATION: Right lower quadrant abdominal pain for 4 days COMPARISON: 02/21/2020 TECHNIQUE: Multiple contiguous axial images were obtained and a CT of the abdomen and pelvis with IV contrast. C oronal and sagittal reformats were performed. FINDINGS: Lower Chest: within normal limits. Abdomen: Liver: within normal limits. Bile Ducts: Normal caliber. Gallbladder: No calcified gallstones. Normal caliber wall. Pancreas: within normal limits. Spleen: within normal limits. Adrenals: within normal limits. Kidneys: within normal limits. Pelvis: Reproductive Organs: Hyperdensity is seen adjacent to the left ovary which could represent blood from recently ovulated follicle. Ureters: within normal limits. Bladder: within normal limits. Peritoneum: No ascites or free air, no fluid collection. Bowel: Normal caliber. Normal appendix. Mesentery and Retroperitoneum: No enlarged mesenteric or retroperitoneal lymph nodes. Vessels: Normal. Abdominal Wall: within normal limits. Bones: Within normal limits IMPRESSION: High density adjacent to the left ovary may represent blood from recently ovulated follicle.
[2020-10-28 01:57] LABS: SARS-CoV-2 PCR by NAA Not Detected (NotDetected)
== END 2020-10-27 13:25 | disposition home or self-care (01) ==
LOC: MADERS 10:22
DX: R05 Cough (principal); R10.32 Left lower quadrant pain; Z20.822 Contact with and (suspected) exposure to COVID-19; I10 Essential (primary) hypertension; E03.9 Hypothyroidism, unspecified
CPT/HCPCS: 71046; 74177; 80053; 80306; 81003; 81015; 81025; 83605; 83690; 85025; 87635; 96374; J2405; U0003; U0005

== ENCOUNTER 2021-02-18 14:18 | Emergency (ER) | payer OTHER ==
[~2021-02-18 14:18] MED LIST changes: +Iopamidol 370 76% 100 ML VIAL ONE; -Sodium Chloride 0.9% 1,000 ML BAG ONE
[2021-02-18 15:05] LABS: #Basophils 0.1 thou/uL (0.0-0.2); #Lymphocytes 1.1 thou/uL (1.20-3.40); #Monocytes 0.7 thou/uL (0.11-0.59); #Neutrophils 10.6 thou/uL (1.40-6.50); %Basophils 0.6 % (0.0-1.0); %Eosinophils 0.2 % (0.0-10.0); %Lymphocytes 8.9 % (21.0-51.0); %Monocytes 5.9 % (0.0-10.0); %Neutrophils 84.5 % (42.0-75.0); Hemoglobin 12.3 g/dL (12.0-16.0); Mean Corpuscular HGB CONC 31.6 g/dL (32.0-36.0); Mean Corpuscular Hemoglobin 27.8 pg (27.0-31.0); Mean Platelet Volume 7.3 fL (7.4-10.4); Platelet Count 257 thou/uL (130-400); RBC Distribution Width 13.3 % (11.5-14.5); Red Blood Cell (RBC) Count 4.41 mill/uL (4.20-5.40); White Blood Cell (WBC) Count 12.5 thou/uL (4.8-10.8)
[2021-02-18 15:07] LABS: Pregs Control Background? CLEAR/WHITE (CLR/WHITE); Pregs Control Bar Appear? YES (CONTROL BAR)
[2021-02-18] MEDS ORDERED: Sodium Chloride 0.9% 1,000 ML ONE (15:07)
[2021-02-18] MEDS ORDERED: Ondansetron PF 4 MG/2 ML Vial ONE (15:07)
[2021-02-18 15:08] LABS: BHCG - Serum Negative (NEGATIVE)
[2021-02-18 15:19] LABS: ALT (SGPT) 77 U/L (8-55); AST (SGOT) 33 U/L (5-34); Albumin 4.1 g/dL (3.5-5.0); Alkaline Phosphatase 69 U/L (40-110); Anion Gap 12 mmol/L (10-20); BUN (Urea Nitrogen) 10 mg/dL (7.0-18.7); Bilirubin, Total 0.6 mg/dL (0.2-1.2); Calc. Creatinine Clearance 0 mL/min (70-130); Calcium 9.7 mg/dL (7.8-10.44); Carbon Dioxide 23 mmol/L (22-29); Chloride 110 mmol/L (98-107); Globulin 2.9 g/dL (2.4-3.5); Glucose 72 mg/dL (70-105); Sodium 141 mmol/L (136-145)
[2021-02-18 16:19] LABS: Bilirubin Negative (Negative); Blood, Urine Trace (Negative); Glucose, Urine (Dipstick) Negative (Negative); Ketone, Urine Negative (Negative); Leukocyte Negative (Negative); Nitrite Negative (Negative); Protein, Urine (Dipstick) 30 mg/dL (Neg-Trace)
[2021-02-18 16:20] LABS: Clarity Hazy (Clear)
[2021-02-18 16:30] LABS: Bacteria/HPF Rare-Few HPF (None Seen); RBC/HPF 0-3 HPF (0-3)
[2021-02-18 16:31] LABS: Amphetamine Detected (NotDetected); Barbiturates Screen Not Detected (NotDetected); Benzodiazepine Screen Not Detected (NotDetected); Cocaine Metabolite Screen Not Detected (NotDetected); Medtox Control Line Valid? VALID (VALID); Methadone Not Detected (NotDetected); Methamphetamine Not Detected (NotDetected); Opiate Screen Not Detected (NotDetected); Oxycodone Screen Not Detected (NotDetected); Phencyclidine (PCP) Not Detected (NotDetected); THC/Cannabinoid Screen Detected (NotDetected); Tricyclic Screen Not Detected (NotDetected)
== END 2021-02-18 17:03 | disposition home or self-care (01) ==
LOC: MADERS 14:18
DX: S00.03XA Contusion of scalp, initial encounter (principal); S00.83XA Contusion of other part of head, initial encounter; S10.93XA Contusion of unspecified part of neck, initial encounter; S40.022A Contusion of left upper arm, initial encounter; S40.021A Contusion of right upper arm, initial encounter; S80.12XA Contusion of left lower leg, initial encounter; S80.11XA Contusion of right lower leg, initial encounter; M54.5 Low back pain; R00.0 Tachycardia, unspecified; F17.210 Nicotine dependence, cigarettes, uncomplicated; I10 Essential (primary) hypertension; R73.03 Prediabetes; E03.9 Hypothyroidism, unspecified; Y04.8XXA Assault by other bodily force, initial encounter
CPT/HCPCS: 36415; 51701; 70450; 70486; 71260; 72125; 74177; 80053; 80306; 81003; 81015; 84703; 85025; 96374; J2405; J7050; Q9967

== ENCOUNTER 2021-02-20 05:56 | Emergency (ER) | payer OTHER ==
[2021-02-20] MEDS ORDERED: Ondansetron PF 4 MG/2 ML Vial ONE (06:20)
[2021-02-20] MEDS ORDERED: Sodium Chloride 0.9% 1,000 ML ONE (06:20)
[2021-02-20 06:32] LABS: #Basophils 0.1 thou/uL (0.0-0.2); #Lymphocytes 0.9 thou/uL (1.20-3.40); #Monocytes 0.5 thou/uL (0.11-0.59); #Neutrophils 5.8 thou/uL (1.40-6.50); %Basophils 0.8 % (0.0-1.0); %Eosinophils 0.3 % (0.0-10.0); %Lymphocytes 12.1 % (21.0-51.0); %Monocytes 7.3 % (0.0-10.0); %Neutrophils 79.6 % (42.0-75.0); Hemoglobin 12.5 g/dL (12.0-16.0); Mean Corpuscular HGB CONC 31.7 g/dL (32.0-36.0); Mean Corpuscular Hemoglobin 27.3 pg (27.0-31.0); Mean Corpuscular Volume 86.3 fL (78.0-98.0); Platelet Count 249 thou/uL (130-400); RBC Distribution Width 13.3 % (11.5-14.5); Red Blood Cell (RBC) Count 4.56 mill/uL (4.20-5.40); White Blood Cell (WBC) Count 7.3 thou/uL (4.8-10.8)
[2021-02-20 06:52] LABS: ALT (SGPT) 113 U/L (8-55); AST (SGOT) 61 U/L (5-34); Albumin 4.5 g/dL (3.5-5.0); Alkaline Phosphatase 79 U/L (40-110); Anion Gap 17 mmol/L (10-20); BUN (Urea Nitrogen) 6 mg/dL (7.0-18.7); Bilirubin, Total 1.8 mg/dL (0.2-1.2); Calc. Creatinine Clearance 0 mL/min (70-130); Calcium 10.1 mg/dL (7.8-10.44); Carbon Dioxide 18 mmol/L (22-29); Chloride 108 mmol/L (98-107); Globulin 3.3 g/dL (2.4-3.5); Glucose 104 mg/dL (70-105); Lipase 4 U/L (8-78); Magnesium 1.7 mg/dL (1.6-2.6); Protein, Total 7.8 g/dL (6.0-8.3); Sodium 140 mmol/L (136-145)
[2021-02-20 07:12] LABS: BHCG - Serum Negative (NEGATIVE); Pregs Control Background? CLEAR/WHITE (CLR/WHITE); Pregs Control Bar Appear? YES (CONTROL BAR)
[2021-02-20] MEDS ORDERED: Ketorolac Tromethamine 30 MG/ML VIAL ONE (07:13)
[2021-02-20] MEDS ORDERED: Potassium Chloride 20 MEQ TAB ONE (07:27)
[2021-02-20 08:25] LABS: Bilirubin Small (Negative); Blood, Urine Negative (Negative); Clarity Clear (Clear); Glucose, Urine (Dipstick) Negative (Negative); Ketone, Urine 80 mg/dL (Negative); Leukocyte Negative (Negative); Nitrite Negative (Negative); Protein, Urine (Dipstick) 30 mg/dL (Neg-Trace); Urobilinogen > or = 8.0 mg/dL (Less than 2); pH, Urine 6.5 (5.0-9.0)
[2021-02-20 08:27] LABS: Amphetamine Detected (NotDetected); Cocaine Metabolite Screen Detected (NotDetected); Methamphetamine Detected (NotDetected); Opiate Screen Not Detected (NotDetected); Phencyclidine (PCP) Not Detected (NotDetected); THC/Cannabinoid Screen Detected (NotDetected)
[2021-02-20 08:28] LABS: Barbiturates Screen Not Detected (NotDetected); Benzodiazepine Screen Not Detected (NotDetected); Medtox Control Line Valid? VALID (VALID); Methadone Not Detected (NotDetected); Oxycodone Screen Not Detected (NotDetected); Tricyclic Screen Not Detected (NotDetected)
[2021-02-20 08:31] LABS: Bacteria/HPF Rare-Few HPF (None Seen); RBC/HPF 0-3 HPF (0-3); Squamous Epithelial 0-3 HPF (0-3); WBC/HPF 0-3 HPF (0-3)
[2021-02-20] MEDS ORDERED: Ondansetron ODT 4 MG TAB ONE (08:57)
[2021-02-20] MEDS ORDERED: Iopamidol 370 76% 100 ML VIAL ONE (10:28)
== END 2021-02-20 09:42 | disposition home or self-care (01) ==
LOC: MADERS 05:56
DX: N83.202 Unspecified ovarian cyst, left side (principal); E87.6 Hypokalemia; R10.84 Generalized abdominal pain; R11.2 Nausea with vomiting, unspecified; R73.03 Prediabetes; I10 Essential (primary) hypertension; E03.9 Hypothyroidism, unspecified; F17.210 Nicotine dependence, cigarettes, uncomplicated
CPT/HCPCS: 74177; 80053; 80306; 81003; 81015; 83690; 83735; 84702; 84703; 85025; 96374; 96375; J1885; J2405; J7050; Q0162; Q9967

== ENCOUNTER 2021-02-24 17:47 | Emergency (ER) | payer OTHER ==
[2021-02-24] MEDS ORDERED: Ibuprofen 600 MG TAB ONE (18:37)
== END 2021-02-24 19:03 | disposition home or self-care (01) ==
LOC: MADERS 17:47
DX: S60.211A Contusion of right wrist, initial encounter (principal); I10 Essential (primary) hypertension; E03.9 Hypothyroidism, unspecified; Z87.891 Personal history of nicotine dependence; Y04.8XXA Assault by other bodily force, initial encounter

== ENCOUNTER 2021-10-24 15:20 | Emergency (ER) | payer OTHER, SELFPAY ==
[2021-10-24] MEDS ORDERED: Famotidine In NaCl 20 mg/50 ml Premix Bag ONE (15:45)
[2021-10-24] MEDS ORDERED: Ondansetron PF 4 MG/2 ML Vial ONE (15:45)
== END 2021-10-24 16:45 | disposition left against medical advice (07) ==
LOC: MADERS 15:20
DX: T78.2XXA Anaphylactic shock, unspecified, initial encounter (principal); T63.441A Toxic effect of venom of bees, accidental (unintentional), initial encounter; R06.02 Shortness of breath; I10 Essential (primary) hypertension; E03.9 Hypothyroidism, unspecified; E16.2 Hypoglycemia, unspecified; F17.210 Nicotine dependence, cigarettes, uncomplicated
CPT/HCPCS: 93005; 96365; 96375; J2405

== ENCOUNTER 2021-12-09 18:27 | Emergency (ER) | payer OTHER ==
[2021-12-09 18:55] LABS: Bilirubin Negative (Negative); Blood, Urine Negative (Negative); Clarity Hazy (Clear); Glucose, Urine (Dipstick) Negative (Negative); Ketone, Urine Trace mg/dL (Negative); Leukocyte Negative (Negative); Nitrite Negative (Negative); Pregnancy Test - Urine (BHCG) Negative (Negative); Protein, Urine (Dipstick) 30 mg/dL (Neg-Trace); Specific Gravity, Urine 1.027 (1.002-1.036); Urobilinogen 0.2 mg/dL (Less than 2)
[2021-12-09 18:56] LABS: Pregu Control Background? CLEAR/WHITE (CLR/WHITE); Pregu Control Bar Appear? YES (CONTROL BAR); Specific Gravity 1.027 (1.002-1.036)
[2021-12-09 19:01] LABS: Bacteria/HPF 1+ HPF (None Seen); RBC/HPF 0-3 HPF (0-3); WBC/HPF 0-3 HPF (0-3)
[2021-12-09 19:02] LABS: Mucous/LPF 2+ LPF (<2+)
== END 2021-12-09 20:33 | disposition home or self-care (01) ==
LOC: MADERS 18:27
DX: S62.617A Displaced fracture of proximal phalanx of left little finger, initial encounter for closed fracture (principal); S00.83XA Contusion of other part of head, initial encounter; F17.210 Nicotine dependence, cigarettes, uncomplicated; I10 Essential (primary) hypertension; R73.03 Prediabetes; E03.9 Hypothyroidism, unspecified; Y04.0XXA Assault by unarmed brawl or fight, initial encounter
CPT/HCPCS: 26720; 70450; 71250; 81003; 81015; 81025

== ENCOUNTER 2022-02-16 13:54 | Emergency (ER) | payer SELFPAY ==
[2022-02-16] MEDS ORDERED: Ketorolac Tromethamine 30 MG/ML VIAL ONE (14:39)
[2022-02-16 14:56] LABS: #Basophils 0.1 thou/uL (0.0-0.2); #Monocytes 0.5 thou/uL (0.11-0.59); #Neutrophils 9.7 thou/uL (1.40-6.50); %Basophils 0.8 % (0.0-1.0); %Lymphocytes 9.2 % (21.0-51.0); %Monocytes 4.4 % (0.0-10.0); %Neutrophils 85.6 % (42.0-75.0); Mean Corpuscular HGB CONC 34.3 g/dL (32.0-36.0); Mean Corpuscular Hemoglobin 28.6 pg (27.0-31.0); Mean Corpuscular Volume 83.2 fL (78.0-98.0); Platelet Count 288 thou/uL (130-400); RBC Distribution Width 11.9 % (11.5-14.5); Red Blood Cell (RBC) Count 5.24 mill/uL (4.20-5.40); White Blood Cell (WBC) Count 11.3 thou/uL (4.8-10.8)
[2022-02-16 15:33] LABS: ALT (SGPT) 214 U/L (8-55); AST (SGOT) 77 U/L (5-34); Albumin 4.5 g/dL (3.5-5.0); Alkaline Phosphatase 69 U/L (40-110); Anion Gap 20 mmol/L (10-20); BUN (Urea Nitrogen) 8 mg/dL (7.0-18.7); Bilirubin, Total 0.6 mg/dL (0.2-1.2); CK (CPK) 54 U/L (29-168); Calc. Creatinine Clearance 0 mL/min (70-130); Calcium 10.1 mg/dL (7.8-10.44); Carbon Dioxide 18 mmol/L (22-29); Chloride 106 mmol/L (98-107); Globulin 3.5 g/dL (2.4-3.5); Glucose 106 mg/dL (70-105); Potassium 4.2 mmol/L (3.5-5.1); Sodium 140 mmol/L (136-145)
[2022-02-16 15:34] LABS: CKMB 0.7 ng/mL (0-6.6)
[2022-02-16] MEDS ORDERED: Orphenadrine Citrate 60 MG/2 ML VIAL ONE (15:59)
== END 2022-02-16 16:21 | disposition home or self-care (01) ==
LOC: MADERS 13:54
DX: M62.830 Muscle spasm of back (principal); F43.0 Acute stress reaction; I10 Essential (primary) hypertension; F17.210 Nicotine dependence, cigarettes, uncomplicated
CPT/HCPCS: 71045; 80053; 82550; 82553; 84484; 85025; 96374; 96375; J1885; J2360

== ENCOUNTER 2022-05-03 23:13 | Emergency (ER) | payer OTHER ==
[~2022-05-03 23:13] MED LIST changes: -Iopamidol 370 76% 100 ML VIAL ONE; +Lactated Ringer's 1,000 ML BAG ONE
[2022-05-03] MEDS ORDERED: Dicyclomine 20 MG/2 ML VIAL ONE (23:47)
[2022-05-03] MEDS ORDERED: Ketorolac Tromethamine 30 MG/ML VIAL ONE (23:47)
[2022-05-03] MEDS ORDERED: Ondansetron PF 4 MG/2 ML Vial ONE (23:47)
[2022-05-03 23:51] LABS: #Basophils 0.1 thou/uL (0.0-0.2); #Eosinphils 0.1 thou/uL (0.0-0.7); #Lymphocytes 2.8 thou/uL (1.20-3.40); #Monocytes 0.8 thou/uL (0.11-0.59); #Neutrophils 6.9 thou/uL (1.40-6.50); %Basophils 0.7 % (0.0-1.0); %Eosinophils 0.5 % (0.0-10.0); %Lymphocytes 26.5 % (21.0-51.0); %Monocytes 7.1 % (0.0-10.0); %Neutrophils 65.3 % (42.0-75.0); Hemoglobin 12.2 g/dL (12.0-16.0); Mean Corpuscular HGB CONC 33.4 g/dL (32.0-36.0); Mean Corpuscular Hemoglobin 29.3 pg (27.0-31.0); Mean Corpuscular Volume 87.8 fL (78.0-98.0); Mean Platelet Volume 7.2 fL (7.4-10.4); Platelet Count 243 thou/uL (130-400); RBC Distribution Width 11.6 % (11.5-14.5); Red Blood Cell (RBC) Count 4.18 mill/uL (4.20-5.40); White Blood Cell (WBC) Count 10.6 thou/uL (4.8-10.8)
[2022-05-04 00:12] LABS: ALT (SGPT) 21 U/L (8-55); AST (SGOT) 13 U/L (5-34); Alkaline Phosphatase 69 U/L (40-110); Anion Gap 15 mmol/L (10-20); BUN (Urea Nitrogen) 12 mg/dL (7.0-18.7); Bilirubin, Total 0.3 mg/dL (0.2-1.2); Calc. Creatinine Clearance 0 mL/min (70-130); Calcium 9.3 mg/dL (7.8-10.44); Carbon Dioxide 20 mmol/L (22-29); Chloride 107 mmol/L (98-107); Estimated GFR 116; Globulin 2.8 g/dL (2.4-3.5); Glucose 96 mg/dL (70-105); Lipase 14 U/L (8-78); Magnesium 1.9 mg/dL (1.6-2.6); Potassium 3.8 mmol/L (3.5-5.1); Protein, Total 6.8 g/dL (6.0-8.3); Sodium 138 mmol/L (136-145)
[2022-05-04 00:26] LABS: Bilirubin Negative (Negative); Blood, Urine Negative (Negative); Clarity Clear (Clear); Glucose, Urine (Dipstick) Negative (Negative); Ketone, Urine Negative (Negative); Leukocyte Negative (Negative); Nitrite Negative (Negative); Protein, Urine (Dipstick) Negative (Neg-Trace); Specific Gravity, Urine 1.015 (1.005-1.030); Urobilinogen 0.2 mg/dL (Less than 2); pH, Urine 6.5 (5.0-9.0)
[2022-05-04 00:27] LABS: Pregnancy Test - Urine (BHCG) Negative (Negative); Pregu Control Background? CLEAR/WHITE (CLR/WHITE); Pregu Control Bar Appear? YES (CONTROL BAR)
[2022-05-04] MEDS ORDERED: Prochlorperazine 10 MG/2 ML VIAL ONE (00:43)
== END 2022-05-04 01:06 | disposition short-term general hospital (02) ==
LOC: MADERS 23:13
DX: K80.20 Calculus of gallbladder without cholecystitis without obstruction (principal); I10 Essential (primary) hypertension; E03.9 Hypothyroidism, unspecified; E16.2 Hypoglycemia, unspecified; F17.210 Nicotine dependence, cigarettes, uncomplicated
CPT/HCPCS: 80053; 81003; 81025; 83605; 83690; 83735; 85025; 96361; 96372; 96374; 96375; J0780; J1885; J2405; J7120